=== PATIENT | male | born 1970 | race Caucasian/White ===

== ENCOUNTER 2018-05-17 08:10 | Observation (INO) | payer OTHER ==
--- NOTE | 2018-05-17 08:19 | ED Physician Documentation ---
General Adult - HISTORIAN Historian: patient - HPI Stated Complaint: hyponatremia Chief Complaint: General Adult Onset: days ago (2) Timing: still present Severity: mild Further Comments: yes (Per [facility] he had a critical sodium at 118. He has no symptoms . He has a mild headache) - ROS CONST: no problems - PAST HX Past History: hypertension Other History: peptic ulcer Immunizations: UTD Allergies/Adverse Reactions: Allergies Allergy/AdvReac Type Severity Reaction Status Date / Time tree nut Allergy Severe Anaphylaxis Verified 05/17/18 08:26 Penicillins Allergy Verified 05/17/18 08:26 Home Medications: Ambulatory Orders Medication Instructions Recorded Carbamazepine [Tegretol] 200 mg PO DAILY 05/17/18 Epinephrine [Epipen] 0.3 mg INJ DIRECTED PRN 05/17/18 Furosemide [Lasix] 40 mg PO BID 05/17/18 Lactulose [Constulose] 30 ml PO BID PRN 05/17/18 Pantoprazole Sodium [Protonix] 40 mg PO BID 05/17/18 Propranolol HCl [Inderal] 20 mg PO BID 05/17/18 Spironolactone 50 mg PO BID 05/17/18 - SOCIAL HX Smoking History: non-smoker Alcohol Use: heavy (he is alcohol rehab) Drug Use: none - FAMILY HX Family History: No - REVIEWED ASSESSMENTS Nursing Assessment Reviewed: Yes Vitals Reviewed: Yes Progress - Progress Progress: 0920: discussed care with nurse at [facility] - she had no further questions DG 1050: will admit obs for sodium - discussed with Dr Nicole SIERRA General Adult Physical Exam - PHYSICAL EXAM GENERAL APPEARANCE: no distress EENT: eye inspection normal, no signs of dehydration NECK: normal inspection RESPIRATORY: no resp distress, chest non-tender, breath sounds normal CVS: reg rate & rhythm, heart sounds normal ABDOMEN: soft, normal bowel sounds, distended (remains soft. He states this is his normal ) BACK: normal inspection SKIN: jaundice (mildly ) EXTREMITIES: non-tender NEURO: oriented X3 Discharge Clincal Impression: Hyponatremia Comments: 1. discussed care with nurse from [facility] 2. Follow up with PCP 3. Return to ER for any increasing concerns Condition: Fair Decision to Admit: [id number] Date of Decison to Admit: 05/17/18 Decision Time: 10:50
[2018-05-17] MEDS ORDERED: 0.9 % SODIUM CHLORIDE 1,000 ML IV ONE (08:20)
[2018-05-17 09:05] LABS: eGFR (Non-African) 51
[2018-05-17 09:06] LABS: BASOPHILS % 0.3 (0.0-1.5); EOSINOPHILS % 1.9 % (0.0-6.8); MONOCYTES % 6.2 % (0.0-11.0); NEUTROPHILS # 5.7 # k/uL (1.4-7.7)
[2018-05-17 10:22] LABS: eGFR (Non-African) 56
[2018-05-17] MEDS ORDERED: BENZOCAINE/MENTHOL 1 EACH LOZENGE MM ONE (11:03)
--- NOTE | 2018-05-17 11:27 | History and Physical Report ---
History of Present Illnes - History of Present Illness Reason for Visit: hyponatremia History of Present Illness: Alcohol rehab - day 3 - hyponatremia - Past Medical History Cardiac: Other ("swelling' does not feel he was told he has CHF ) Hepatobiliary: Cirrhosis - Past Surgical History Past Surgical History: None - Past Social History Smoke: No Alcohol: Heavy (in alcohol rehab ) Drugs: None Lives: With Family Domestic Violence: Negative - Health Maintenance Health Maintenance: Cholesterol Influenza Vaccine: No Pneumonia Vaccine: No Review of Systems - Review of Systems Constitutional: negative: Fever, Chills, Sweats, Weakness, Malaise Eyes: negative: pain ENT: negative: Ear Pain, Ear Discharge, Nose Discharge, Nose Congestion, Mouth Pain Respiratory: negative: Cough, Dry Cardiovascular: negative: Chest Pain, Palpitations Gastrointestinal: negative: Nausea, Vomiting, Abdominal Pain Genitourinary: negative: Dysuria, Frequency, Incontinence, Hematuria Musculoskeletal: negative: Neck Pain Skin: negative: Rash Neurological: negative: Weakness - Medications/Allergies Allergies/Adverse Reactions: Allergies Allergy/AdvReac Type Severity Reaction Status Date / Time tree nut Allergy Severe Anaphylaxis Verified 05/17/18 08:26 Penicillins Allergy Verified 05/17/18 08:26 Home Medications: Home Medications Carbamazepine [Tegretol] 200 mg PO DAILY 05/17/18 Epinephrine [Epipen] 0.3 mg INJ DIRECTED PRN 05/17/18 Furosemide [Lasix] 40 mg PO BID 05/17/18 Lactulose [Constulose] 30 ml PO BID PRN 05/17/18 Pantoprazole Sodium [Protonix] 40 mg PO BID 05/17/18 Propranolol HCl [Inderal] 20 mg PO BID 05/17/18 Spironolactone 50 mg PO BID 05/17/18 Current Inpatient Medications: Current Inpatient Medications Acetaminophen (Tylenol) 650 mg PO Q6 KONG Carbamazepine (Tegretol) 200 mg PO BID KONG Furosemide (Lasix) 40 mg PO BID KONG Sodium Chloride (Normal Saline) 1,000 mls @ 100 mls/hr IV Q10H KONG Pantoprazole Sodium (Protonix) 40 mg PO BID KONG Propranolol HCl (Inderal) 20 mg PO BID KONG Spironolactone (Aldactone) 50 mg PO BID KONG Exam - Exam Vital Signs: Vital Signs (72 hours) 05/17/18 08:10 Pulse Rate [ 97 H Right Pulse ox] Respiratory 16 Rate Blood Pressure 110/54 [Right Arm] O2 Sat by Pulse 97 Oximetry General: Alert, Oriented to Person, Oriented to Place, Oriented to Time, Cooperative HEENT: PERRLA Neck: Normal Range of Motion Lungs: Clear to auscultation, Normal air movement, Speaks full Sentences Cardiovascular: Regular rate, Normal S1, Normal S2, No murmurs Abdomen: Normal bowel sounds, Soft, No tenderness, Distended (although soft ) Integumentary: Normal Extremities: No clubbing Neurological: Normal gait Psych/Mental Status: Mental status NL - Laboratory Results Laboratory Results: Laboratory Results 05/17/18 05/17/18 05/17/18 08:20 08:20 09:55 WBC 6.80 RBC 3.46 L Hgb 10.7 L Hct 32.3 L MCV 93.0 MCH 31.0 MCHC 33.2 RDW 15.0 H Plt Count 139 Neut % (Auto) 83.3 H Lymph % (Auto) 8.3 L Dougherty % (Auto) 6.2 Eos % (Auto) 1.9 Baso % (Auto) 0.3 Neut # (Auto) 5.7 Lymph # (Auto) 0.6 Dougherty # (Auto) 0.4 Eos # (Auto) 0.1 Baso # (Auto) 0.0 Sodium 124 L 123 L Potassium 4.4 4.7 Chloride 84 L 89 L Carbon Dioxide 28 26 BUN 25 H 26 H Creatinine 1.53 H 1.42 H Estimated Creat Clear 77 83 Est GFR ( Amer) > 60 > 60 Est GFR (Non-Af Amer) 51 L 56 L Glucose 140 H 110 H Calcium 8.9 8.2 L Total Bilirubin 3.5 H 3.0 H AST 90 H 76 H ALT 24 30 Alkaline Phosphatase 121 121 Total Protein 7.4 6.8 Albumin 4.0 3.4 L VTE Assessment - RISK FACTOR SCORE VTE RISK FACTOR SCORES: AGE 40-60 YEARS
[2018-05-17] MEDS ORDERED: ACETAMINOPHEN 325 MG TABLET PO SCH (12:00)
[2018-05-17] MEDS: 0.9 % SODIUM CHLORIDE 1,000 ML IV SCH ×2 (12:30→21:45)
[2018-05-17 13:15] VITALS: BMI 29.0
[2018-05-17] MEDS: BENZOCAINE/MENTHOL 1 EACH LOZENGE MM PRN ×2 (14:51→18:15)
[2018-05-17] MEDS: SPIRONOLACTONE 25 MG TABLET PO SCH (18:15)
[2018-05-17] MEDS: PANTOPRAZOLE SODIUM 40 MG TABLET.DR PO SCH (18:15)
[2018-05-17] MEDS: FUROSEMIDE 40 MG TABLET PO SCH (18:15)
[2018-05-17] MEDS: CARBAMAZEPINE 200 MG TABLET PO SCH (20:34)
[2018-05-17] MEDS: PROPRANOLOL HCL 20 MG TABLET PO SCH (20:34)
[2018-05-17] MEDS: IBUPROFEN 200 MG TABLET PO SCH (20:34)
[2018-05-17 20:51] LABS: BASOPHILS % 0.3 (0.0-1.5); EOSINOPHILS % 1.9 % (0.0-6.8); MEAN CORPUSCULAR HEMOGLOBIN 30.6 pg (28.0-34.0); MONOCYTES % 6.4 % (0.0-11.0); NEUTROPHILS # 4.3 # k/uL (1.4-7.7)
[2018-05-17 21:01] LABS: eGFR (Non-African) > 60
[2018-05-18] MEDS: PANTOPRAZOLE SODIUM 40 MG TABLET.DR PO SCH (05:41)
[2018-05-18] MEDS: SPIRONOLACTONE 25 MG TABLET PO SCH (05:41)
[2018-05-18] MEDS: FUROSEMIDE 40 MG TABLET PO SCH (05:41)
[2018-05-18 06:24] LABS: BASOPHILS % 0.2 (0.0-1.5); EOSINOPHILS % 2.6 % (0.0-6.8); MEAN CORPUSCULAR HEMOGLOBIN 30.9 pg (28.0-34.0); MONOCYTES % 4.7 % (0.0-11.0)
[2018-05-18 06:33] LABS: eGFR (Non-African) 55
--- NOTE | 2018-05-18 08:26 | Discharge Summary ---
Discharge Summary - Discharge Sumary Admission Date: 05/17/18 Discharge Date: 05/18/18 History of Present Illness: Patient presented to ED from [facility] with sodium level of 118. Patient was at [facility] for alcohol rehab. Sodium level at ED was 124. Polina ent was admitted overnight on IVF. Sodium had improved to 126. Patient admits to drinking considerable amount of water. Condition at Discharge: Stable Home Medications: Ambulatory Orders Medication Instructions Recorded Carbamazepine [Tegretol] 200 mg PO DAILY 05/17/18 Epinephrine [Epipen] 0.3 mg INJ DIRECTED PRN 05/17/18 Furosemide [Lasix] 40 mg PO BID 05/17/18 Lactulose [Constulose] 30 ml PO BID PRN 05/17/18 Pantoprazole Sodium [Protonix] 40 mg PO BID 05/17/18 Propranolol HCl [Inderal] 20 mg PO BID 05/17/18 Spironolactone 50 mg PO BID 05/17/18 Consultations this Visit: None Procedures this Visit: None Allergies/Adverse Reactions: Allergies Allergy/AdvReac Type Severity Reaction Status Date / Time tree nut Allergy Severe Anaphylaxis Verified 05/17/18 08:26 Penicillins Allergy Verified 05/17/18 08:26 Patient Problems: Current Active Problems Problem Status Onset Hyponatremia Acute Discharge Summary: Patient was admitted for hyponatremia (124) secondary to alcohol consumption and free water intake. He was given normal saline with improved sodium of 126. He was instructed to avoid free water, drink sports drinks, juice, coffee or tea instead, salt food.
[2018-05-18] MEDS: PROPRANOLOL HCL 20 MG TABLET PO SCH (09:04)
[2018-05-18] MEDS: IBUPROFEN 200 MG TABLET PO SCH (09:04)
[2018-05-18] MEDS: CARBAMAZEPINE 200 MG TABLET PO SCH (09:04)
[2018-05-18 10:46] VITALS: BP 116/64
== END 2018-05-18 10:34 | disposition short-term general hospital (02) ==
LOC: ED 08:10 → SOUTH 11:00
PROVIDERS: ADMIT Nurse Practitioner Family; ATTEND Physician Assistant Medical
DX: E87.1 Hypo-osmolality and hyponatremia (principal)
CPT/HCPCS: 36415; 80053; 85025; 96365; 96366; 99283; G0378; J7030; 99217; 99218; S1016

== ENCOUNTER 2018-07-17 09:14 | Outpatient (CLI) | payer OTHER ==
[2018-07-17 09:32] LABS: MEAN CORPUSCULAR HEMOGLOBIN 31.2 pg (28.0-34.0)
[2018-07-17 09:33] LABS: BASOPHILS % 0.2 % (0.0-1.5); EOSINOPHILS % 2.2 % (0.0-6.8); MONOCYTES % 10.1 % (0.0-11.0); NEUTROPHILS # 2.9 # k/uL (1.4-7.7)
[2018-07-17 09:34] LABS: eGFR (Non-African) > 60
== END 2018-07-17 09:16 ==
LOC: LAB 09:14
PROVIDERS: ATTEND Family Medicine
DX: R79.9 Abnormal finding of blood chemistry, unspecified (principal)
CPT/HCPCS: 36415; 80053; 85025